=== PATIENT | male | born 1990 | race Caucasian/White ===

== ENCOUNTER → 2016-04-23 | Outpatient (CLI) | payer BC ==
[2016-04-23 09:58] LABS: BASOPHILS # (AUTO) 0.02 10*3/UL; BASOPHILS % (AUTO) 0.4 % (0-1); EOSINOPHILS % (AUTO) 4.3 % (0-8); HEMATOCRIT 44.5 % (42.0-52.0); HEMOGLOBIN 15.8 g/dL (14.0-18.0); IMM GRAN % (AUTO) 0.2 % (0-5); IMM GRAN# (AUTO) 0.01 10*3/UL; LYMPHOCYTES % (AUTO) 34.1 % (10-50); MEAN CORPUSCULAR HEMOGLOBIN 31.3 PG (27-31); MEAN CORPUSCULAR HGB CONC 35.5 g/dL (33-37); MEAN PLATELET VOLUME 9.6 FL (7.4-12.2); MONOCYTES # (AUTO) 0.43 10*3/UL (0.3-0.8); MONOCYTES % (AUTO) 9.2 % (5-15); NEUTROPHILS # (AUTO) 2.43 10*3/UL; NEUTROPHILS % (AUTO) 51.8 % (50-80); RDW COEFFICIENT OF VARIATION 12.8 % (11.5-14.5); RED BLOOD COUNT 5.05 10^6/uL (4.70-6.10); WHITE BLOOD COUNT 4.69 10^3/uL (4.8-10.8)
[2016-04-23 10:07] LABS: PLATELET MORPHOLOGY COMMENT NORMAL MORPHOLOGY (NORM)
[2016-04-23 10:21] LABS: ASPARTATE AMINO TRANSFERASE 25 IU/L (21-57); BILIRUBIN,TOTAL 0.9 mg/dL (0.3-1.2); BLOOD UREA NITROGEN 12 mg/dL (7-22); CALCIUM 9.8 mg/dL (8.7-10.7); CHLORIDE 104 meq/L (98-112); EST GLOMERULAR FILTRATION > 60 (>60 ml/min/1.73m(2)); GLUCOSE 79 mg/dL (78-110); HDL CHOLESTEROL 57 mg/dL (40-150); POTASSIUM 4.4 meq/L (3.8-5.2); SODIUM 140 meq/L (135-145); TOTAL PROTEIN 6.8 g/dL (6.1-8.0); TRIGLYCERIDES 146 mg/dL (44-200)
== END ==
LOC: MOB LAB 09:13
PROVIDERS: ATTEND Nurse Practitioner Family
DX: Z00.00 Encounter for general adult medical examination without abnormal findings (principal)
CPT/HCPCS: 36415; 80053; 80061; 84443; 85025